=== PATIENT | male | born 1960 | race Two or more races ===

== ENCOUNTER 2018-02-08 12:47 | Observation (INO) | payer BC, OTHER ==
--- NOTE | 2018-02-08 12:59 | ER Document Report ---
ED Medical Screen (RME) - General Stated Complaint: BACK PAIN Time Seen by Provider: 02/08/18 12:56 Notes: RAPID MEDICAL EVALUATION DISCLOSURE I have seen this patient as part of a Rapid Medical Evaluation and, if applicable, placed any initially appropriate orders. The patient will be seen and fully evaluated, including a full history and physical exam, by a provider ( in Main ED or Fast Track) when a room becomes available. Called out to pivot desk to quickly see this patient who had onset 1 hour ago of right-sided facial droop and right upper extremity weakness. He reports the upper extremity weakness was short-lived and resolved however facial droop persists. He denies right lower extremity weakness. Denies numbness tingling. Charge nurse placing stroke protocol orders. denies slurred speech. EXAM R facial droop RUE strength 5/5 - Related Data Allergies/Adverse Reactions: No Known Allergies Allergy (Verified 02/08/18 12:49)
--- NOTE | 2018-02-08 13:14 | RADIOLOGY REPORT (SQ) ---
EXAM DESCRIPTION: CHEST SINGLE VIEW COMPLETED DATE/TIME: 02/08/2018 1:06 pm REASON FOR STUDY: stroke s/s COMPARISON: 04/29/2009 EXAM PARAMETERS: NUMBER OF VIEWS: One view. TECHNIQUE: Single frontal radiographic view of the chest acquired. RADIATION DOSE: NA LIMITATIONS: None. FINDINGS: LUNGS AND PLEURA: No opacities, masses or pneumothorax. No pleural effusion. MEDIASTINUM AND HILAR STRUCTURES: No masses. Contour normal. HEART AND VASCULAR STRUCTURES: Heart normal in size. Normal vasculature. BONES: No acute findings. HARDWARE: None in the chest. OTHER: No other significant finding. IMPRESSION: NO ACUTE RADIOGRAPHIC FINDING IN THE CHEST. TECHNICAL DOCUMENTATION: JOB ID: [id number] [employer]- All Rights Reserved Reading location - IP/workstation name: [email or web address]
--- NOTE | 2018-02-08 13:18 | RADIOLOGY REPORT (SQ) ---
EXAM DESCRIPTION: CT HEAD WITHOUT COMPLETED DATE/TIME: 02/08/2018 1:08 pm REASON FOR STUDY: numbness COMPARISON: 04/29/2009 TECHNIQUE: Axial images acquired through the brain without intravenous contrast. Images reviewed wi th bone, brain and subdural windows. Images stored on PACS. All CT scanners at this facility use dose modulation, iterative reconstruction, and/or weight based d osing when appropriate to reduce radiation dose to as low as reasonably achievable (ALARA). [facility]: Dose Right [facility]: CareDose [facility]: Dose Right [facility]: Teradose 4D [facility]: Ill[employer] Software RADIATION DOSE: mGy. LIMITATIONS: None. FINDINGS: VENTRICLES: Normal size and contour. CEREBRUM: No masses. No hemorrhage. No midline shift. No evidence for acute infarction. Normal gra y/white matter differentiation. No areas of low density in the white matter. CEREBELLUM: No masses. No hemorrhage. No alteration of density. No evidence for acute infarction. EXTRAAXIAL SPACES: No fluid collections. No masses. ORBITS AND GLOBE: No intra- or extraconal masses. Normal contour of globe without masses. CALVARIUM: No fracture. PARANASAL SINUSES: No fluid or mucosal thickening. SOFT TISSUES: No mass or hematoma. OTHER: No other significant finding. IMPRESSION: NO ACUTE INTRACRANIAL IMAGING FINDINGS. NO SIGNIFICANT CHANGE FROM PRIOR STUDY. EVIDENCE OF ACUTE STROKE: NO. COMMENT: Quality ID # [id number]: Final reports with documentation of one or more dose reduction techniques (e.g., Automated exposure control, adjustment of the mA and/or kV according to patient size, use of iterative reconstruction technique) TECHNICAL DOCUMENTATION: JOB ID: [id number] [employer]- All Rights Reserved Reading location - IP/workstation name: [email or web address]
[2018-02-08 13:29] LABS: INTERNATIONAL RATION (INR) 0.89; PROTHROMBIN TIME 12.5 SEC (11.4-15.4)
[2018-02-08 13:30] LABS: PARTIAL THROMBOPLASTIN TIME 27.2 SEC (23.5-35.8)
[2018-02-08] MEDS ORDERED: ASPIRIN 81 MG TABLET, CHEWABLE PO ONE (13:44)
--- NOTE | 2018-02-08 13:44 | ER Document Report ---
ED General - General Chief Complaint: S/S of Possible Stroke Stated Complaint: BACK PAIN Time Seen by Provider: 02/08/18 12:56 Mode of Arrival: Ambulatory Information source: Patient Notes: 58-year-old male presents with complaints of sudden facial droop numbness sensation of his right face. Patient notes symptoms lasted for approximately 15 -20 minutes and then resolved on their own. Patient initially believed that it was due to his low back pain which is chronic in nature. Patient has never had facial droop before Patient took a Sonja aspirin prior to arrival TRAVEL OUTSIDE OF THE [place] IN LAST 30 DAYS: No - HPI Onset: Just prior to arrival Onset/Duration: Sudden Quality of pain: Achy Severity: Mild Pain Level: 1 Associated symptoms: Other Exacerbated by: Movement Relieved by: Denies Similar symptoms previously: No Recently seen / treated by doctor: No - Related Data Allergies/Adverse Reactions: No Known Allergies Allergy (Verified 02/08/18 12:49) Past Medical History - Social History Smoking Status: Never Smoker Cigarette use (# per day): No Chew tobacco use (# tins/day): No Smoking Education Provided: No Family History: Reviewed & Not Pertinent Patient has suicidal ideation: No Patient has homicidal ideation: No - Past Medical History Cardiac Medical History: Reports: Hx Hypertension - DOES NOT TAKE MEDS FOR HTN Renal/ Medical History: Denies: Hx Peritoneal Dialysis Review of Systems - Review of Systems Notes: REVIEW OF SYSTEMS: CONSTITUTIONAL : Denies fever, chills, or sweats. Denies recent illness. EENT: Denies eye, ear, throat, or mouth pain or symptoms. Denies nasal or sinus congestion or discharge. Denies throat, tongue, or mouth swelling or difficulty swallowing. CARDIOVASCULAR: Denies chest pain. Denies palpitations or racing or irregular heart beat. Denies ankle edema. RESPIRATORY: Denies cough, cold, or chest congestion. Denies shortness of breath, difficulty breathing, or wheezing. GASTROINTESTINAL: Denies abdominal pain or distention. Denies nausea, vomiting , or diarrhea. Denies blood in vomitus, stools, or per rectum. Denies black, tarry stools. Denies constipation. GENITOURINARY: Denies difficulty urinating, painful urination, burning, frequency, blood in urine, or discharge. MUSCULOSKELETAL: Admits chronic low back pain SKIN: Denies rash, lesions or sores. HEMATOLOGIC : Denies easy bruising or bleeding. LYMPHATIC: Denies swollen, enlarged glands. NEUROLOGICAL: Admits to facial droop PSYCHIATRIC: Denies anxiety or stress. Denies depression, suicidal ideation, or homicidal ideation. ALL OTHER SYSTEMS REVIEWED AND NEGATIVE. Dictation was performed using [employer] voice recognition software PHYSICAL EXAMINATION: GENERAL: Well-appearing, well-nourished and in no acute distress. HEAD: Atraumatic, normocephalic. EYES: Pupils equal round and reactive to light, extraocular movements intact, sclera anicteric, conjunctiva are normal. ENT: Nares patent, oropharynx clear without exudates. Moist mucous membranes. NECK: Normal range of motion, supple without lymphadenopathy LUNGS: Breath sounds clear to auscultation bilaterally and equal. No wheezes rales or rhonchi. HEART: Regular rate and rhythm without murmurs ABDOMEN: Soft, nontender, nondistended abdomen. No guarding, no rebound. No masses appreciated. Musculoskeletal: Normal range of motion, no pitting or edema. No cyanosis. NEUROLOGICAL: Cranial nerves grossly intact. Normal speech, normal gait. Normal sensory, motor exams PSYCH: Normal mood, normal affect. SKIN: Warm, Dry, normal turgor, no rashes or lesions noted. Course - Re-evaluation Re-evalutation: 02/08/18 13:43 Patient's presentation most consistent with a transient ischemic attack, he is completely asymptomatic at this time does not meet criteria for thrombolytics I will give him 3 more baby aspirins 02/08/18 14:08 Patient will be observed for a TIA - Laboratory Result Diagrams: 02/08/18 13:15 02/08/18 13:15 Laboratory results interpreted by me: 02/08/18 13:15 AST 16 L - Diagnostic Test Radiology reviewed: Image reviewed - CT head notes no acute abnormality without contrast, Reports reviewed - EKG Interpretation by Me EKG shows normal: Sinus rhythm, [place], Intervals, QRS Complexes Discharge - Discharge Clinical Impression: TIA (transient ischemic attack) Qualifiers: Transient cerebral ischemia type: unspecified Qualified Code(s): G45.9 - Transient cerebral ischemic attack, unspecified Condition: Stable Disposition: ADMITTED OBSERVATION Admitting Provider: Hospitalist Unit Admitted: IMCU Referrals: ELROY ESPARZA MD [Primary Care Provider] - Follow up as needed
[2018-02-08 13:55] LABS: ALANINE AMINOTRANSFERASE 28 U/L (21-72); ALBUMIN 3.9 g/dL (3.5-5.0); ALKALINE PHOSPHATASE 45 U/L (38-126); ANION GAP 9 (5-19); ASPARTATE AMINO TRANSFERASE 16 U/L (17-59); BILIRUBIN,DIRECT 0.2 mg/dL (0.0-0.4); BILIRUBIN,TOTAL 0.6 mg/dL (0.2-1.3); BLOOD UREA NITROGEN 10 mg/dL (7-20); CALCIUM 9.6 mg/dL (8.4-10.2); CARBON DIOXIDE 30 mmol/L (22-30); CHLORIDE 102 mmol/L (98-107); CREATINE KINASE 56 U/L (55-170); GLUCOSE 109 mg/dL (75-110); SODIUM 140.5 mmol/L (137-145); TOTAL PROTEIN 6.6 g/dL (6.3-8.2)
[2018-02-08 13:56] LABS: ABSOLUTE LYMPHOCYTES (AUTO) 1.7 10^3/uL (0.5-4.7); ABSOLUTE MONOCYTES (AUTO) 0.6 10^3/uL (0.1-1.4); ABSOLUTE NEUT (AUTO) 5.5 10^3/uL (1.7-8.2); BASOPHILS % (AUTO) 0.3 % (0-2); EOSINOPHILS % (AUTO) 0.1 % (0-6); LYMPHOCYTES % (AUTO) 21.7 % (13-45); MEAN CORPUSCULAR HEMOGLOBIN 32.6 pg (27.0-33.4); MEAN CORPUSCULAR HGB CONC 34.1 g/dL (32.0-36.0); MEAN CORPUSCULAR VOLUME 96 fl (80-97); MONOCYTES % (AUTO) 8.1 % (3-13); PLATELET COUNT 191 10^3/uL (150-450); RED CELL DISTRIBUTION WIDTH 13.2 % (11.5-14.0); SEGMENTED NEUTROPHILS % (AUTO) 69.8 % (42-78); TOTAL CELLS COUNTED % (AUTO) 100 %; WHITE BLOOD COUNT 7.9 10^3/uL (4.0-10.5)
[2018-02-08 14:07] LABS: CREATINE KINASE MB 0.51 ng/mL (<4.55); TROPONIN I < 0.012 ng/mL
[2018-02-08] MEDS ORDERED: MAGNESIUM HYDROXIDE SUSP 30 ML UDCUP PO PRN (14:54)
[2018-02-08] MEDS ORDERED: DOCUSATE SODIUM 100 MG CAPSULE PO PRN (14:54)
[2018-02-08] MEDS ORDERED: ACETAMINOPHEN 325 MG TABLET PO PRN (14:54)
[2018-02-08] MEDS ORDERED: ONDANSETRON HCL INJ/PF 4 MG/2 ML SDV IV PRN (14:54)
[2018-02-08] MEDS ORDERED: TRAMADOL HCL 50 MG TABLET PO PRN (14:54)
[2018-02-08] MEDS ORDERED: HALOPERIDOL LACTATE INJ 5 MG/1 ML VIAL IV ONE (14:57)
[2018-02-08] MEDS ORDERED: HYDRALAZINE HCL INJ/PF 20 MG/1 ML SDV IV PRN (15:22)
--- NOTE | 2018-02-08 15:30 | PDOC H&P ---
History of Present Illness Admission Date/PCP: 02/08/18 14:33 ELROY ESPARZA MD Patient complains of: Rt side weakness/facial droop History of Present Illness: JUNIOR Heather HAY is a 58 year old male with a past medical history significant for hypertension and chronic back pain who recently had a spinal steroid injection. He reports that he took a dose of gabapentin for his chronic back pain this morning; approximately 45 minutes later developed shortness of breath. He reports that he has experienced similar symptoms with gabapentin, however, this time he developed right sided paresthesia and weakness. He reports right side facial numbness, especially to his eye, associated with right facial droop lasting approximately 15-20 minutes. This coincided with RUE numbness that lasted a only a few minutes. He is unclear about possible worsening RLE numbness and weakness as he reports that this a common symptom related to his chronic back pain. He denies associated SORENSEN, dizziness, confusion, aphasia, chest pain, palpitations , abdominal pain, nausea and vomiting. Currently, all symptoms have resolved. Evaluation in the emergency room is unremarkable with a normal laboratory workup , chest x-ray, and CT of the head. He is referred to the hospitalist service for observational admission for TIA/ CVA rule out. Past Medical History Cardiac Medical History: Reports: Hypertension Denies: Coronary Artery Disease, Myocardial Infarction, Hyperlipidema Pulmonary Medical History: Reports: None EENT Medical History: Reports: None Neurological Medical History: Reports: None Endocrine Medical History: Reports: None Renal/ Medical History: Reports: None Malignancy Medical History: Reports: None GI Medical History: Reports: None Musculoskeltal Medical History: Reports: Other - Chronic back pain Skin Medical History: Reports: None Psychiatric Medical History: Reports: None Traumatic Medical History: Reports: None Hematology: Reports: None Infectious Medical History: Reports: None Past Surgical History Past Surgical History: Reports: None Social History Information Source: Patient Lives with: Spouse/Significant other Smoking Status: Never Smoker Frequency of Alcohol Use: None Hx Recreational Drug Use: No Drugs: None Hx Prescription Drug Abuse: No - Advance Directive Resuscitation Status: Do Not Resuscitate Surrogate healthcare decision maker:: The patient's [id number], Yolanda Hay, Family History Family History: Reviewed & Not Pertinent Parental Family History Reviewed: Yes Children Family History Reviewed: Yes Sibling(s) Family History Reviewed.: Yes Medication/Allergy Allergies/Adverse Reactions: No Known Allergies Allergy (Verified 02/08/18 12:49) Review of Systems Constitutional: PRESENT: weakness - Rt side. ABSENT: chills, fever(s), headache (s), weight gain, weight loss Eyes: ABSENT: visual disturbances Ears: ABSENT: hearing changes Nose, Mouth, and Throat: ABSENT: headache(s) Cardiovascular: ABSENT: chest pain, dyspnea on exertion, edema, orthropnea, palpitations Respiratory: PRESENT: dyspnea. ABSENT: cough, hemoptysis Gastrointestinal: ABSENT: abdominal pain, constipation, diarrhea, hematemesis, hematochezia, nausea, vomiting Genitourinary: ABSENT: dysuria, hematuria Musculoskeletal: PRESENT: back pain. ABSENT: joint swelling Integumentary: ABSENT: rash, wounds Neurological: PRESENT: as per HPI, focal weakness - Rt side, paresthesias. ABSENT: abnormal gait, abnormal speech, confusion, dizziness, syncope Psychiatric: ABSENT: anxiety, depression, homidical ideation, suicidal ideation Endocrine: ABSENT: cold intolerance, heat intolerance, polydipsia, polyuria Hematologic/Lymphatic: ABSENT: easy bleeding, easy bruising Physical Exam Vital Signs: Temp Pulse Resp BP Pulse Ox 97.5 F 64 16 145/88 H 98 02/08/18 12:50 02/08/18 12:50 02/08/18 12:50 02/08/18 12:50 02/08/18 12:50 General appearance: PRESENT: no acute distress, cooperative, well-developed, well-nourished Head exam: PRESENT: atraumatic, normocephalic Eye exam: PRESENT: conjunctiva pink, EOMI, PERRLA. ABSENT: scleral icterus Ear exam: PRESENT: normal external ear exam Mouth exam: PRESENT: moist, tongue midline Neck exam: ABSENT: carotid bruit, JVD, lymphadenopathy, thyromegaly Respiratory exam: PRESENT: clear to auscultation joselyn, symmetrical, unlabored. ABSENT: rales, rhonchi, wheezes Cardiovascular exam: PRESENT: RRR, +S1, +S2. ABSENT: diastolic murmur, rubs, systolic murmur Pulses: PRESENT: normal dorsalis pedis pul Vascular exam: PRESENT: normal capillary refill GI/Abdominal exam: PRESENT: normal bowel sounds, soft. ABSENT: distended, guarding, mass, organolmegaly, rebound, tenderness Rectal exam: PRESENT: deferred Extremities exam: PRESENT: full ROM. ABSENT: calf tenderness, clubbing, pedal edema Neurological exam: PRESENT: alert, awake, oriented to person, oriented to place , oriented to time, oriented to situation, CN II-XII grossly intact. ABSENT: motor sensory deficit, aphasic Psychiatric exam: PRESENT: appropriate affect, normal mood. ABSENT: homicidal ideation, suicidal ideation Skin exam: PRESENT: dry, intact, warm. ABSENT: cyanosis, rash Results Impressions: Head CT 02/08/18 00:00 IMPRESSION: NO ACUTE INTRACRANIAL IMAGING FINDINGS. NO SIGNIFICANT CHANGE FROM PRIOR STUDY. EVIDENCE OF ACUTE STROKE: NO. Chest X-Ray 02/08/18 12:59 IMPRESSION: NO ACUTE RADIOGRAPHIC FINDING IN THE CHEST. Assessment & Plan - Diagnosis (1) TIA (transient ischemic attack) Qualifiers: Transient cerebral ischemia type: unspecified Qualified Code(s): G45.9 - Transient cerebral ischemic attack, unspecified Is this a current diagnosis for this admission?: Yes Plan: The patient presented to the emergency room with a complaint of right sided paresthesia and weakness associated with a facial droop lasting approximately 15 -20 minutes that had resolved prior to arrival in ED. Workup thus far is benign. EKG normal sinus rhythm. Head CT negative for acute CVA. He is admitted to [facility] on continuous cardiac telemetry. Will obtain MEDS per protocol. Will evaluate lipid panel with AM labs. Will obtain carotid doppler, Head MRI/MRA, and echocardiogram. Will allow permissive hypertension; Hydralazine is available as needed to maintain blood pressure control. Daily aspirin and statin therapy. (2) HTN (hypertension) Is this a current diagnosis for this admission?: Yes Plan: Patient endorses a history of HTN but is not on home medications. IV hydralazine is available for blood pressure control. Will monitor closely for need of antihypertensive medications at time of discharge. (3) Chronic back pain Qualifiers: Back pain location: low back pain Back pain laterality: right Sciatica presence: with sciatica Sciatica laterality: sciatica of right side Qualified Code(s): M54.41 - Lumbago with sciatica, right side; G89.29 - Other chronic pain; G89.29 - Other chronic pain Is this a current diagnosis for this admission?: Yes Plan: Patient reports chronic right side back pain with sciatica and frequent paresthesias to the right leg; recently had steroid injection. He reports that he is prescribed gabapentin, however, relates that he develops a rash and shortness of breath when taking this medication. He is advised to discontinue this. Tylenol and tramadol as needed for pain. Encourage nonpharmacological interventions such as increased mobility, position change, and heat/ice packs. - Time Time Spent: 50 to 70 Minutes Medications reviewed and adjusted accordingly: Yes Anticipated discharge: Home Within: within 24 hours
--- NOTE | 2018-02-08 16:41 | EKG REPORT ---
SEVERITY:- NORMAL ECG - SINUS RHYTHM : Confirmed by: Fabio Caba MD 08-Feb-2018 16:40:40
--- NOTE | 2018-02-08 17:59 | RADIOLOGY REPORT (SQ) ---
EXAM DESCRIPTION: MRI HEAD WITHOUT COMPLETED DATE/TIME: 02/08/2018 4:47 pm REASON FOR STUDY: TIA/CVA rule out; rt side parethesia/weakness COMPARISON: CT scan 02/08/2018 TECHNIQUE: Multiplanar imaging includes non-contrasted T1, T2, FLAIR, and diffusion with ADC map seq uences. Images stored on PACS. LIMITATIONS: None. FINDINGS: ANATOMY: No anomalies. Normal vascular flow voids. Pituitary fossa normal. CSF SPACES: Normal in size and contour. No hemorrhage. CEREBRUM: Sulci and gyri normal in size and contour. Normal white matter signal on FLAIR imaging. No evidence of hemorrhage, mass, or extraaxial fluid collection. POSTERIOR FOSSA: No signal alteration. No hemorrhage. No edema, masses or mass effect. Internal franklin tory canals, cerebello-pontine angles, mastoids normal. DIFFUSION IMAGING: Negative for acute or sub-acute infarction. ORBITS: No masses. Globes normal. PARANASAL SINUSES: No fluid levels. Mucosa normal. OTHER: The left angela apex is pneumatized. There is fluid in the right angela apex IMPRESSION: No acute findings. No acute infarction. Fluid in the right angela apex. EVIDENCE OF ACUTE STROKE: NO. COMMENT: Consider contrast-enhanced imaging with thin slice imaging in the posterior fossa. TECHNICAL DOCUMENTATION: JOB ID: [id number] [employer]- All Rights Reserved Reading location - IP/workstation name: [email or web address]
--- NOTE | 2018-02-08 18:04 | RADIOLOGY REPORT (SQ) ---
EXAM DESCRIPTION: MRA HEAD WITHOUT COMPLETED DATE/TIME: 02/08/2018 4:47 pm REASON FOR STUDY: TIA/CVA rule out; rt side parethesia/weakness COMPARISON: None. TECHNIQUE: Axial 3-D [id number] acquisition imaging performed through the brain in the area of t he [place]. Images reformatted using 3-D MIPS. LIMITATIONS: None. FINDINGS: SOURCE IMAGES: No unexpected findings on source images. No large masses. 3-D MIP: No aneurysm. No occlusions. No significant stenosis. OTHER: No other significant finding. IMPRESSION: NORMAL MRA OF THE [place]. TECHNICAL DOCUMENTATION: JOB ID: [id number] [employer]- All Rights Reserved Reading location - IP/workstation name: [email or web address]
[2018-02-08] MEDS ORDERED: ATORVASTATIN CALCIUM 20 MG TABLET PO SCH (22:00)
[2018-02-08] MEDS: HEPARIN SOD (PORCINE) 5,000 UNIT/ML 1 ML SYRINGE SUBCUT SCH (22:04)
[2018-02-08] MEDS: FAMOTIDINE 20 MG TABLET PO SCH (22:05)
[2018-02-09 06:06] LABS: MEAN CORPUSCULAR HEMOGLOBIN 32.6 pg (27.0-33.4); MEAN CORPUSCULAR VOLUME 96 fl (80-97); PLATELET COUNT 198 10^3/uL (150-450); RED BLOOD COUNT 4.59 10^6/uL (4.35-5.55); RED CELL DISTRIBUTION WIDTH 13.1 % (11.5-14.0); WHITE BLOOD COUNT 8.4 10^3/uL (4.0-10.5)
[2018-02-09] MEDS: HEPARIN SOD (PORCINE) 5,000 UNIT/ML 1 ML SYRINGE SUBCUT SCH ×2 (06:25→14:34)
[2018-02-09 06:31] LABS: ANION GAP 10 (5-19); BLOOD UREA NITROGEN 16 mg/dL (7-20); CALCIUM 9.2 mg/dL (8.4-10.2); CARBON DIOXIDE 28 mmol/L (22-30); CHLORIDE 108 mmol/L (98-107); CHOLESTEROL 148.56 mg/dL (0-200); GLUCOSE 121 mg/dL (75-110); POTASSIUM 4.8 mmol/L (3.6-5.0); SODIUM 145.6 mmol/L (137-145); TRIGLYCERIDES 92 mg/dL (<150)
[2018-02-09 06:42] LABS: DIRECT LDL 70 mg/dL (<100)
[2018-02-09] MEDS ORDERED: ASPIRIN 81 MG TABLET, ENT COATED PO SCH (10:00)
[2018-02-09] MEDS ORDERED: CLOPIDOGREL BISULFATE 75 MG TABLET PO SCH (10:00)
[2018-02-09] MEDS: FAMOTIDINE 20 MG TABLET PO SCH (10:47)
[2018-02-09] MEDS ORDERED: TRAMADOL HCL 50 MG TABLET PO PRN (14:32)
--- NOTE | 2018-02-09 14:58 | RADIOLOGY REPORT (SQ) ---
EXAM DESCRIPTION: CAROTID DOPPLER COMPLETED DATE/TIME: 02/09/2018 2:34 pm REASON FOR STUDY: TIA/CVA work up, Rt side weakness COMPARISON: CT brain 02/08/2018 MRI brain 02/08/2018 TECHNIQUE: Grayscale ultrasound, Doppler velocity and spectra, and color Doppler images acquired of the extra-cranial carotid and vertebral arteries. Images stored on PACS. LIMITATIONS: None. FINDINGS: RIGHT CAROTID CCA Velocities: Within normal limits. ICA Velocities Peak systolic 0.76 m/s. End diastolic 0.21 m/s. Proximal ICA/CCA peak systolic ratio 1.1. Spectra normal. No significant plaque. LEFT CAROTID CCA Velocities: Within normal limits. ICA Velocities Peak systolic 0.93 m/s. End diastolic 0.31 m/s. Proximal ICA/CCA peak systolic ratio 1.2. Spectra normal. No significant plaque. VERTEBRAL ARTERIES: Antegrade flow. Normal waveforms. SUBCLAVIAN ARTERIES: Not evaluated OTHER: No other significant finding. IMPRESSION: NO HEMODYNAMICALLY SIGNIFICANT STENOSIS. COMMENT: Quality ID #[id number]: Velocity criteria are extrapolated from the diameter data as defined by t he Society of Radiologists in Ultrasound Consensus Conference. Radiology 2003: 229; 340-346. TECHNICAL DOCUMENTATION: JOB ID: [id number] [employer]- All Rights Reserved Reading location - IP/workstation name: [email or web address]
--- NOTE | 2018-02-09 17:00 | PDOC DISCHARGE SUMMARY ---
General - Admit/Disc Date/PCP Admission Date/Primary Care Provider: 02/08/18 14:33 ELROY ESPARZA MD Discharge Date: 02/09/18 - Discharge Diagnosis (1) TIA (transient ischemic attack) Is this a current diagnosis for this admission?: Yes Summary: The patient was admitted with Rt sided paresthesia and weakness associated with right facial numbness and droop. The patient's symptoms resolved spontaneously after 15-20 minutes and prior to his arrival in the ED. EKG demonstrated Normal Sinus Rhythm. Chest x-ray was negative for acute cardiopulmonary findings. Head CT was negative for acute stroke. Brain MRA demonstrated a normal [place]. Carotid Doppler were negative for hemodynamically significant stenosis. Head MRI was negative for CVA but did note incidental finding of fluid in the right angela apex and left angela apex is pneumatized. At the time of this dictation, the patient's Echocardiogram has been completed but the finalized report is not yet available. The patient was admitted to the [facility] on continuous cardiac telemetry. He remained in Normal Sinus Rhythm throughout his stay. NIH scale by emergency department provider was 0 and all MENDs exams were normal. Physical therapy evaluated the patient and did not identify need for continued therapy services. Dr. Almanzar (ENT at [facility]) was called regarding the MRI results. She recommended that the patient have an outpatient follow-up; they patient does not require further inpatient work up or treatment. At time of discharge, the patient is in stable condition and free of symptoms. He is advised to discontinue his gabapentin. He is recommended to continue Aspirin 81 mg daily. He is advised to follow up with his primary care provider within 1 week. (2) HTN (hypertension) Is this a current diagnosis for this admission?: Yes Summary: Patient reports a remote history of hypertension; he is not currently prescribed medications. While in the Emergency Department; his blood pressures ranged 138/81 - 156/91. However, he has remained normotensive since arrival to the floor. He is not prescribed hypertensives at discharge as his elevated BP likely reflect anxiety/stress. Recommend follow up with primary care provider for continued blood pressure monitoring and management. (3) Chronic back pain Is this a current diagnosis for this admission?: Yes Summary: The patient reports a history of chronic back pain with sciatica. His home dose gabapentin was held as the patient reported developing a rash and shortness of breath approximately 45 minutes after taking the medication. He did not require as needed medications to manage his pain. 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 (4) Abnormal MRI of head Is this a current diagnosis for this admission?: Yes Summary: Head MRI was negative for CVA but did note incidental finding of fluid in the right angela apex and left petrux apex is pneumatized. Dr. Almanzar (ENT at [facility]) was called regarding the MRI results. She recommended that the patient have an outpatient follow-up; they patient does not require further inpatient work up or treatment. The patient is recommended to follow up with ENT in 4-6 weeks to review incidental MRI findings. - Additional Information Resuscitation Status: Do Not Resuscitate Discharge Diet: Cardiac Discharge Activity: Activity As Tolerated, Slowly Increase Activity Home Medications: Acetaminophen [Tylenol 325 mg Tablet] 650 mg PO Q4HP PRN tablet 02/09/18 Aspirin [Ecotrin 81 mg EC Tablet] 81 mg PO DAILY tabec 02/09/18 History of Present Illness History of Present Illness: JUNIOR Heather HAY is a 58 year old male with a past medical history significant for hypertension and chronic back pain who recently had a spinal steroid injection. He reports that he took a dose of gabapentin for his chronic back pain this morning; approximately 45 minutes later developed shortness of breath. He reports that he has experienced similar symptoms with gabapentin, however, this time he developed right sided paresthesia and weakness. He reports right side facial numbness, especially to his eye, associated with right facial droop lasting approximately 15-20 minutes. This coincided with RUE numbness that lasted a only a few minutes. He is unclear about possible worsening RLE numbness and weakness as he reports that this a common symptom related to his chronic back pain. He denies associated SORENSEN, dizziness, confusion, aphasia, chest pain, palpitations , abdominal pain, nausea and vomiting. Currently, all symptoms have resolved. Evaluation in the emergency room is unremarkable with a normal laboratory workup , chest x-ray, and CT of the head. He is referred to the hospitalist service for observational admission for TIA/ CVA rule out. Physical Exam Vital Signs: Temp Pulse Resp BP Pulse Ox 97.6 F 62 14 127/78 H 99 02/09/18 12:13 02/09/18 12:13 02/09/18 12:13 02/09/18 12:13 02/09/18 12:13 Intake & Output 02/08/18 02/09/18 02/10/18 06:59 06:59 06:59 Intake Total 138 Balance 138 Weight 70.4 kg General appearance: PRESENT: no acute distress, cooperative, well-developed, well-nourished, other Head exam: PRESENT: atraumatic, normocephalic Eye exam: PRESENT: conjunctiva pink, EOMI, PERRLA. ABSENT: scleral icterus Ear exam: PRESENT: normal external ear exam Mouth exam: PRESENT: moist, tongue midline Neck exam: ABSENT: carotid bruit, JVD, lymphadenopathy, thyromegaly Respiratory exam: PRESENT: clear to auscultation joselyn, symmetrical, unlabored. ABSENT: rales, rhonchi, wheezes Cardiovascular exam: PRESENT: RRR, +S1, +S2. ABSENT: diastolic murmur, rubs, systolic murmur Pulses: PRESENT: normal dorsalis pedis pul Vascular exam: PRESENT: normal capillary refill GI/Abdominal exam: PRESENT: normal bowel sounds, soft. ABSENT: distended, guarding, mass, organolmegaly, rebound, tenderness Rectal exam: PRESENT: deferred Extremities exam: PRESENT: full ROM. ABSENT: calf tenderness, clubbing, pedal edema Neurological exam: PRESENT: alert, awake, oriented to person, oriented to place , oriented to time, oriented to situation, CN II-XII grossly intact. ABSENT: motor sensory deficit Psychiatric exam: PRESENT: normal mood, unusual affect. ABSENT: homicidal ideation, suicidal ideation Skin exam: PRESENT: dry, intact, warm. ABSENT: cyanosis, rash Results Laboratory Results: 02/09/18 05:38 02/09/18 05:38 02/09/18 02/09/18 05:38 05:38 WBC 8.4 RBC 4.59 Hgb 15.0 Hct 44.0 MCV 96 MCH 32.6 MCHC 34.0 RDW 13.1 Plt Count 198 Sodium 145.6 H Potassium 4.8 Chloride 108 H Carbon Dioxide 28 Anion Gap 10 BUN 16 Creatinine 0.85 Est GFR ( Amer) > 60 Est GFR (Non-Af Amer) > 60 Glucose 121 H Calcium 9.2 Triglycerides 92 Cholesterol 148.56 LDL Cholesterol Direct 70 VLDL Cholesterol 18.0 HDL Cholesterol 55 Impressions: Brain MRI with MRA 02/08/18 00:00 IMPRESSION: NORMAL MRA OF [place]. Head CT 02/08/18 00:00 IMPRESSION: NO ACUTE INTRACRANIAL IMAGING FINDINGS. NO SIGNIFICANT CHANGE FROM PRIOR STUDY. EVIDENCE OF ACUTE STROKE: NO. Head MRI 02/08/18 00:00 IMPRESSION: No acute findings. No acute infarction. Fluid in the right angela apex. EVIDENCE OF ACUTE STROKE: NO. Chest X-Ray 02/08/18 12:59 IMPRESSION: NO ACUTE RADIOGRAPHIC FINDING IN THE CHEST. Carotid Doppler Study 02/09/18 15:01 IMPRESSION: NO HEMODYNAMICALLY SIGNIFICANT STENOSIS. Qualifiers - * PATIENT BEING DISCHARGED WITH ANY OF THE FOLLOWING DIAGNOSIS: No Plan Discharge Plan: Discharge to home with self care. Follow up with primary care provider within 1 week. Recommend follow up with ENT provider within 4-6 weeks to evaluate incidental MRI findings. Time Spent: Less than 30 Minutes
[2018-02-09 19:02] VITALS: BP 138/81
--- NOTE | 2018-02-09 20:25 | XCELERA REPORT ---
[address] [address] Transthoracic Echocardiogram Report Name: JUNIOR Heather HAY Age: 58 yrs Gender: Male : 1960 Patient Status: Inpatient Patient Location: [address] [place] [address] Study Date: 02/09/2018 09:48 AM Height: 70 in Weight: 155 lb BSA: 1.9 m2 Procedure: A two-dimensional transthoracic echocardiogram with color flow and Doppler was performed. The study was technically limited with all images being suboptimal in quality. Reason For Study: TIA/CVA work up History: TIA/CVA. Ordering Physician: EVELYN ESCOBAR Performed By: Matteo Kruger Interpretation Summary There is no obvious cardiac source of embolus noted on this transthoracic echocardiogram. Follow-up with a WENDIE is suggested if cardiac source is still suspected. The left ventricle is normal in size. There is normal left ventricular wall thickness. LV EF is 60% Left ventricular systolic function is normal. Doppler measurements suggest normal left ventricular diastolic function The right ventricle is grossly normal size. The left atrial size is normal. There is no evidence of mitral valve prolapse. There is no mitral valve stenosis. There is no mitral regurgitation noted. There is no aortic valve stenosis There is no LVOT obstruction. No aortic regurgitation is present. There is no tricuspid stenosis. No tricuspid regurgitation. Unable to calculate RVSP due to insufficient TR jet. There is no pericardial effusion. There is no obvious cardiac source of embolus noted on this transthoracic echocardiogram. Follow-up with a WENDIE is suggested if cardiac source is still suspected MMode/2D Measurements & Calculations RVDd: 3.1 cm LVIDd: 4.5 cm FS: 30.9 % Ao root diam: 3.2 cm IVSd: 0.97 cm LVIDs: 3.1 cm EDV(Teich): 94.7 ml LVPWd: 0.99 cm ESV(Teich): 39.2 ml Ao root area: 8.3 cm2 EF(Teich): 58.6 % LA dimension: 2.9 cm Doppler Measurements & Calculations MV E max honorio: MV P1/2t max honorio: Ao V2 max: LV V1 max P.6 cm/sec 106.1 cm/sec 108.0 cm/sec 4.6 mmHg MV A max honorio: MV P1/2t: 65.6 msec Ao max PG: LV V1 max: 66.6 cm/sec 4.7 mmHg 107.6 cm/sec MV E/A: 1.6 MVA(P1/2t): 3.4 cm2 MV dec slope: 473.9 cm/sec2 PA V2 max: 88.8 cm/sec PA max P.2 mmHg Left Ventricle The left ventricle is normal in size. There is normal left ventricular wall thickness. LV EF is 60%. Left ventricular systolic function is normal. Doppler measurements suggest normal left ventricular diastolic function. The left ventricular wall motion is normal. There is no thrombus. There is no ventricular septal defect visualized. Right Ventricle The right ventricle is grossly normal size. The right ventricle is not well visualized secondary to technical limitations. Atria The right atrium is normal. The left atrial size is normal. The interatrial septum is intact with no evidence for an atrial septal defect. Mitral Valve There is no evidence of mitral valve prolapse. There is no vegetation seen on the mitral valve. There is no mitral valve stenosis. There is no mitral regurgitation noted. Aortic Valve There is no aortic valvular vegetation. There is no aortic valve stenosis. There is no LVOT obstruction. No aortic regurgitation is present. Tricuspid Valve There is no tricuspid stenosis. No tricuspid regurgitation. Unable to calculate RVSP due to insufficient TR jet. Pulmonic Valve There is no pulmonic valvular stenosis. There is a trace amount of pulmonic regurgitation. Great Vessels The aortic root is normal size. Effusions There is no pericardial effusion. : EVELYN ESCOBAR > Phyllis Bliss
== END 2018-02-09 19:20 | disposition home or self-care (01) ==
LOC: ER 12:47 → EH 14:33 → 3S 17:19
PROVIDERS: ADMIT Internal Medicine; ATTEND Internal Medicine
DX: G45.9 Transient cerebral ischemic attack, unspecified (principal); I10 Essential (primary) hypertension; G89.29 Other chronic pain; M54.41 Lumbago with sciatica, right side; R93.0 Abnormal findings on diagnostic imaging of skull and head, not elsewhere classified; L27.0 Generalized skin eruption due to drugs and medicaments taken internally; R06.02 Shortness of breath; T42.6X5A Adverse effect of other antiepileptic and sedative-hypnotic drugs, initial encounter; Z66 Do not resuscitate; Z79.82 Long term (current) use of aspirin
CPT/HCPCS: 93005; 99285; 36415 ×2; 82553; 82550; 85025; 85027; 85610; 85730; 80048; 80053; 84484; 80061; 93306; 93880; 70551; 70544; 71045; 70450; 93010; 97116; 97162; G0378 ×3; J1644 ×2; J3490 ×2